=== PATIENT | female | born 1965 | race Caucasian/White ===

== ENCOUNTER 2024-09-22 14:17 | Outpatient (AMB) | payer MEDICARE, MEDICAID, SELFPAY ==
--- NOTE | 2024-09-22 14:19 | A.OFFVIS_ITS ---
Vital Signs 3 09/22/24 14:20 Height 5 ft 3 in Weight 226 lb 6.636 oz BMI 40.1 BP 140/76 H Blood Pressure Location Lt brachial Position Sitting Pulse 88 Pulse Source Pulse Oximeter Pulse Oximetry (%) 97 Oxygen Delivery Method Room Air Intake Visit Reasons: Hypothyroidism and weight management Intake Note: New patient present today for Hypothyroidism and weight management. 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 Accompanied by: Self / Same As Patient Allergies No Known Allergies Allergy (Verified 09/22/24 14:23) Medication List - Last Reconciled 09/22/24 by Asha Tavera MD amlodipine 2.5 mg PO DAILY atorvastatin 40 mg PO DAILY docusate sodium 100 mg PO BID fluticasone propionate 50 mcg/actuation 1 spray intranasal DAILY lamotrigine 150 mg PO DAILY levocetirizine 5 mg PO DAILY levothyroxine 50 mcg PO DAILY lorazepam 1 mg PO TID methylphenidate HCl 10 mg PO BID nortriptyline 25 mg PO BEDTIME omeprazole 40 mg PO BID ondansetron HCl 4 mg PO TID PRN polyethylene glycol 3350 5 grams PO BID quetiapine 400 mg PO BID valacyclovir 4,000 mg PO ONCE HPI Comments Details: 59-year-old female coming in today for initial evaluation of hypothyroidism and weight management. Past medical history significant for hypothyroidism, prediabetes, hypertension, metabolic dysfunction associated liver disease, hyperlipidemia, bipolar disorder, class 3 obesity. Hypothyroidism Hypothyroidism diagnosed sometime roughly in 1999. On levothyroxine 50 mcg daily , good administration and adherence. Was seeing PCP before this. Patient currently denies heat or cold intolerance, costipation resolved with meds , hair loss, palpitation, anxiety, mood changes, low energy, changes in appearance of eyes or vision changes, tremors, increased diaphoresis or dry skin. ? Patient denies any difficulty swallowing, pain on swallowing or voice changes or difficulty breathing. Patient denies any history of childhood neck radiation. Denies having ever amiodarone. [place] : in the , doesnt remember how long she was on it Biotin supplements : yes Patient denies any family history of thyroid cancer. Mother , Father and sister had thyroid disease. Obesity BMI 40.1 kg per m2 Current weight 226 lb On Wegovy 0.5 mg weekly from October to March 2024, lost 30 lbs , gained back 10 lbs since Apr 2024 Used to be overweight at a kid, then normal weight in high school , and then up until 10 years ago was normal, then started gaining weight , went from 130 lbs to 240 lbs. Also has been on anti depressive meds during this time. Prior to [place] was at the highest weight of 250 lbs. No history of ME or stroke. 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 Diet: Tries to avoid junk food Reports easy bruising , no proximal muscle weakness, no skin thinning, no facial plethora, no abdominal stria Feels rings are tighter , no change in shoe size Quit smoking 2016, smoked for 30 years, 2 packs a day Alcohol use: none Drug use : none On social security, disability Is not interested in weight loss surgery, apprehensive of it Physical exam General: sitting comfortably in no acute distress, no acromegalic or cushingoid features HEENT: normocephalic/atraumatic, Neck: supple, symmetrical, does have dorsocervical and supraclavicular fat pads Cardiac: normal heart sounds Pulm: normal breath sounds B/L, no added breath sounds Abd: not distended, no tenderness, no purple striae Extremities: no edema, no signs of myxedema Neuro: AAO x3, Speech: normal, no facial droop, moving all 4 extremities Skin: no rash, no bruises, no skin thinning PFSH Medical History (Updated 09/22/24 @ 15:22 by Asha Tavera MD) Obesity Bipolar disorder Metabolic dysfunction-associated steatotic liver disease (MASLD) Prediabetes HLD (hyperlipidemia) HTN (hypertension) Hypothyroidism Surgical History (Updated 09/22/24 @ 14:32 by IZZY Perez) No pertinent past surgical history Family History (Updated 09/22/24 @ 14:28 by IZZY Perez) Mother Breast cancer Thyroid disease Father Thyroid disease Heart disease Social History Alcohol intake: current Alcohol intake frequency: does not drink Patient Tobacco Use Status: Former Tobacco user Physical Exam Vital Signs: Last Vital Signs Pulse 88 09/22/24 14:20 BP 140/76 H 09/22/24 14:20 Pulse Ox 97 09/22/24 14:20 Oxygen Delivery Method Room Air 09/22/24 14:20 BMI result Body Mass Index 40.1 Assessment & Plan Assessment & Plan (1) Hypothyroidism: Code(s): E03.9 - Hypothyroidism, unspecified Category: Medical Qualifiers: 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 Most recent blood work done in July 2024 shows TSH was slightly elevated at 4.3. At this time I will repeat labs. Plan: -ordered TSH and free T4 to be done now -continue levothyroxine 50 mcg daily -follow up in 6 weeks (2) Obesity: Code(s): E66.9 - Obesity, unspecified Category: Medical Qualifiers: Obesity type: due to excess calories Obesity classification: adult class 3 (BMI >= 40) Serious obesity comorbidity presence: with serious comorbidity Body mass index: BMI 40.0-44.9 Qualified Code(s): E66.813 - Obesity, class 3; Z68.41 - Body mass index [BMI] 40.0-44.9, adult Plan: 59-year-old female with class 3 severe obesity with BMI of 40.1 kg per m2 with current weight 226 lb, with serious comorbidity of hypertension, hyperlipidemia, prediabetes, metabolic dysfunction associated liver disease, who is on Wegovy 0.5 mg weekly injection from October to March 2024 and lost 30 lb, now gained 10 lb in the past 6 months since she has been off the GLP 1 agonist. She does not have any acromegalic or obvious cushingoid features. I reviewed with patient the importance of weight loss as it relates to decreasing the risk of diabetes, cardiovascular disease, obstructive sleep apnea,PCOS, arthritis. We reviewed the importance of decreasing total calorie consumption, minimizing fats and carbohydrates. We discussed the method of 500 calorie deficit per day using phone calorie apps such as Antuit or my fitness pal. Also placed referral to support staff, though this was not covered by her insurance previously apparently, we will check again. She is already exercising with 30 minutes walk daily, walks about 4-5 miles. I have asked her to add resistance training to her exercise regimen about 2-3 days a week with weight lifting and resistance bands. Continue current aerobic activity. She is a candidate for weight loss surgery, however she is not interested in surgery at this time. She is very motivated to lose weight and is maintaining a good exercise regimen, plus some additional information giving regarding dietary education. In addition to lifestyle modification I would strongly believe that she is a good candidate for weight loss medications. I I would like to start her on Zepbound which is a GLP 1/GI P agonist, patient would be an excellent candidate for this medication. No family history of thyroid cancer, no personal history of pancreatitis, no history of gallstones. No current alcohol use. I discussed the adverse effects of GI intolerance, risk of pancreatitis and risk of medullary thyroid cancer seen in rodents but not human being. She has hypertension, hyperlipidemia, prediabetes and is at very high-risk of developing cardiovascular disease and diabetes and this medication we will result in about 15-20% weight loss which would be her target. She is not a good candidate for other weight loss medications which are less potent such as phentermine, as those only result in about 5% weight loss which is a short-term solution, 5% weight loss would not be getting her to her goal target. Plus she has hypertension with currently uncontrolled blood pressure, and she also has a strong psychiatric history with bipolar disorder and is on antipsychotic medications. These could interfere with phentermine. Plus weight management is a long-term chronic treatment which requires medications that patients can be on safely for long periods of time. Plan: -start Zepbound 2.5 mg weekly injection -lifestyle modification as advised above -support staff referral placed -follow up in 6 weeks (3) Prediabetes: Code(s): R73.03 - Prediabetes Category: Medical Plan: See above Plan I spent 60 minutes in reviewing the record, seeing the patient and documenting in the medical record. Orders: Orders 2 Thyroid Stimulating Hormone Today E03.9 - Hypothyroidism, unspecified Hemoglobin A1c Today E66.9 - Obesity, unspecified, R73.03 - Prediabetes Free T4 (Free Thyroxine) Today E03.9 - Hypothyroidism, unspecified Referrals 2 Nutrition/Dietitian Referral E66.9 - Obesity, unspecified Medications: New 2 tirzepatide (weight loss) (Zepbound) for 4 weeks 2.5 mg (0.5 mL) subcut QWEEK 2 mL 3RF E66.813 - Obesity, class 3, E78.5 - Hyperlipidemia, unspecified, I10 - Essential (primary) hypertension, K76.0 - Fatty (change of) liver, not elsewhere classified, R73.03 - Prediabetes, Z68.41 - Body mass index [BMI] 40.0-44.9, adult Patient Instructions: Weight loss counselling ? Limit added sugars to less than 25 grams daily. There are 4.2 grams of sugar per teaspoon of sugar. A teaspoon of honey has 6 grams of sugar! Bread also can have more sugar than you think-check labels ? No soda or juices. Drink water, unsweetened iced tea or seltzer ? Limit eating out/take out or prepared meals to twice weekly at most ? Avoid red meat, hot dogs, hdaley and deli meat. Substitute plant protein for animal protein as much as you can. Beans, nuts, tofu, soy milk ? Limit cheese to 1 ounce a few times weekly ? Eat high fiber foods like beans, apples and green veggies, salsa is a great snack with whole grain cracker like Wasa ? Look for the whole grain stamp when choosing bread etc. Aim for 48 grams of whole grains daily. Whole wheat does not equal whole grains! ? Don't keep tempting treats in the house. Go out once in a while for a treat. ? Don't eat anything deep fried or cream based-no sour cream Download the amandeep lose it and aim for 500 calories deficit per day to plan to lose 1 lb per week Start adding some weights to your exercise regimen 2-3 days a week Continue aerobic exercise with walking/jogging Referral to support staff placed Start Zepbound 2.5 mg weekly injection , please let me know when you do start it as I keep track of dates to uptitrate. 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
[2024-09-22 14:20] VITALS: BP 140/76; PULSE 88; O2SAT 97; BMI 40.1
--- OUTSIDE RECORDS SUMMARY | 2024-09-22 15:33 | XMS_ITS | Clinical Summary ---
Author Organization [facility] [address] [facility] Address [address] [place] [address] Phone Care Team Providers Care Family Day Carer Name Role Phone Efraín Rodríguez MD Primary Care Provider [phone] Allergies No known active allergies Medications valACYclovir (VALTREX) 1 gram tablet TAKE 2 TABLETS BY MOUTH TWICE DAILY FOR 1 DAY NEEDED FOR COLD SORE 4 Active Wegovy 0.5 mg/0.5 mL injection pen 4 Active risperiDONE (RisperDAL) 2 mg tablet Take 1 tablet (2 mg total) by mouth. at bedtime. Active QUEtiapine (SEROquel) 400 mg tablet Take 2 tablets (800 mg total) by mouth. at bedtime Active polyethylene glycol 3350 (MIRALAX ORAL) Take by mouth. 6 Active ondansetron (ZOFRAN) 4 mg tablet Take 1 tablet (4 mg total) by mouth 3 (three) times a day if needed. 4 Active omeprazole (PriLOSEC) [address] capsule TAKE 1 CAPSULE BY MOUTH TWICE DAILY ON AN EMPTY STOMACH Active metoclopramide (REGLAN) 5 mg tablet TAKE 1 TABLET BY MOUTH THREE TIMES DAILY 1 HOUR BEFORE MEALS 4 Active methylphenidate (RITALIN) 10 mg tablet TAKE 1 TABLET BY MOUTH TWICE DAILY FOR ADHD Active LORazepam (ATIVAN) 1 mg tablet Take 1 tablet (1 mg total) by mouth. 4 Active levothyroxine (SYNTHROID, LEVOTHROID) 50 mcg tablet Take 1 tablet (50 mcg total) by mouth. at bedtime Active levocetirizine (XYZAL) 5 mg tablet Take 1 tablet (5 mg total) by mouth. Active lamoTRIgine (LaMICtal) 150 mg tablet Take 1 tablet (150 mg total) by mouth. at bedtime. 4 Active fluticasone propionate (FLONASE) 50 mcg/actuation nasal spray Administer 1 spray into each nostril 1 (one) time each day. Active docusate sodium (COLACE) 100 mg capsule Take 1 capsule (100 mg total) by mouth 2 (two) times a day. 4 Active atorvastatin (LIPITOR) 20 mg tablet Take 1 tablet (20 mg total) by mouth 1 (one) time each day. Active amLODIPine (NORVASC) 2.5 mg tablet Take 1 tablet (2.5 mg total) by mouth 1 (one) time each day. Active albuterol HFA (PROAIR HFA ; PROVENTIL HFA ; VENTOLIN HFA) 90 mcg/actuation inhaler 2 puffs every 4 (four) hours if needed for wheezing. 4 Active aspirin 81 mg EC tablet Take 1 tablet (81 mg total) by mouth. 4 Active nortriptyline (PAMELOR) 25 mg capsuleIndication s:Nausea and vomiting, unspecified vomiting type Take 1 capsule (25 mg total) by mouth at bedtime. 90 each 3 4 04/11/20 25 Active polyethylene glycol (MIRALAX) 17 gram packetIndications :Chronic constipation Take 51 g by mouth 2 (two) times a day. 9180 g 3 5 07/11/19 26 Active Active Problems Problem Noted Date Diagnosed Date Adenomatous polyp of colon 04/11/2024 Gastroesophageal reflux disease without esophagi tis 04/11/2024 Depression 04/11/2024 Hypothyroid 04/11/2024 Bipolar affective (CMS/HCC V24, CMS/HCC V28) Chronic constipation 04/11/2024 Assessment & Plan (07/10/2024 9:06 AM EDT): Stable with MiraLAX 6 capfuls daily Orders: polyethylene glycol (MIRALAX) 17 gram packet; Take 51 g by mouth 2 (two) times a day. Nausea and vomiting 04/11/2024 Assessment & Plan (07/10/2024 9:06 AM EDT): Only one mild episode 2 weeks ago. Unclear if this was a lesser version of her typical episodes due to nortriptyline or if it was unrelated and possibly viral or due to stopping Wegovy Continue nortriptyline 25 mg Encounters Date Type Department Care Team Description 07/10/2024 8:40 AM EDT Office Visit Gastroenterology - [address] [facility] [address] [facility] [address] [place] [address] Adolfo Hernández PA Nausea and vomiting, unspecified vomiting type (Primary Dx); Chronic constipation from Last 3 Months Surgical History Surgery Date Site/Laterality Comments COLONOSCOPY 11/21/2021 - 12/21/2021 TA - 3 yr COLONOSCOPY 08/21/2018 - 09/20/2018 TAx1,HPx1, left sided tic, rhoids ( 3 yr) COLONOSCOPY 08/21/2017 - 09/20/2017 TA x 9, sigmoid tics, rhoids (1yr) ESOPHAGOGASTRODUODENOSCOPY 08/21/2018 - 09/20/2018 nl Social History Tobacco Use Types Packs/Day Years Used Date Smoking Tobacco: Former Cigarettes Tobacco Cessation:Counseling Given: Not Answered Alcohol Use Standard Drinks/Week Comments Never 0 (1 standard drink = 0.6 oz pur e alcohol) Comments Unknown Sex and Gender Information Value Date Recorded Sex Assigned at Not on file Legal Sex Female 6:01 AM EST Gender Identity Not on file Sexual Orientation Not on file Obstetrics History Last Filed Vital Signs Vital Sign Reading Time Taken Comments Blood Pressure - - Pulse - - Temperature - - Respiratory Rate - - Oxygen Saturation - - Inhaled Oxygen Concentration - - Weight 101 kg (222 lb) 07/10/2024 8:36 AM EDT Height 160 cm (5' 3 ) 07/10/2024 8:36 AM EDT Body Mass Index 39.33 07/10/2024 8:36 AM EDT Plan of Treatment Upcoming Encounters Date Type Department Care Team (Late st Contact Info) Description 05/05/2025 1:30 PM EST Consult Bariatric Surgery - [place] [address] [facility] [address] [place] [address] Justyn Rincon MD [address] [facility] [address] [place] [address] Health Maintenance Due Date Last Done Comments Breast Cancer Screening 1967 Hepatitis A Vaccines (1 of 2 - Risk 2-dose series) 1986 Hepatitis B Vaccines (1 of 3 - 19+ 3-dose series) 1986 Cervical Cancer Screening: Pap Smear 1988 Pneumococcal Vaccine: 50+ Years (2 of 2 - PCV) 2017 12/14/2015 Zoster Vaccines (2 of 2) 05/22/2018 03/27/2018, 02/21 Cholesterol Screening (Lipid Panel) 03/26/2022 Depression Screening 03/26/2022 HIV Screening 03/26/2022 Hepatitis C Screening 03/26/2022 Medicare Annual Wellness Visit 03/26/2022 Social Influencers of Health Screening 03/26/2022 Hypertension/CHF/CAD Annual BMP Blood Test 04/11/2024 DTaP,Tdap,and Td Vaccines (3 - Td or Tdap) 07/17/2028 07/17/2018, 06/25/2006 Colorectal Cancer Screening: Colonoscopy 04/15/2034 04/15/2024 Pneumococcal Vaccine: Pediatrics (0 to 5 Years) and At-Risk Patients (6 to 64 Years) Aged Out 12/14/2015 No longer eligible based on patient's age to complete this topic COVID-19 Vaccine Completed 01/19/2024, , 12/29/2021, Additional history exists Influenza Vaccine Completed 01/19/2024, , 12/29/2021, Additional history exists HIB Vaccines Aged Out No longer eligi ble based on patient's age to complete this topic HPV Vaccines Aged Out No longer eligi ble based on patient's age to complete this topic IPV Vaccines Aged Out No longer eligi ble based on patient's age to complete this topic MMR Vaccines Aged Out No longer eligi ble based on patient's age to complete this topic Meningococcal ACWY Vaccine Aged Out N o longer eligible based on patient's age to complete this topic Meningococcal B Vaccine Aged Out No l onger eligible based on patient's age to complete this topic RSV Immunization Patients Under 20 months Aged Out No longer eligible based on patient's age to complete this topic Varicella Vaccines Aged Out No longer eligible based on patient's age to complete this topic Procedures Procedure Name Priority Date/Time Associated Diagnosis Comments COLONOSCOPY Routine 04/15/2024 11:12 AM EST from Last 3 Months or Most Recently Relevant to Health Maintenance Results * COLONOSCOPY (04/15/2024 11:12 AM EST) Anatomical Region Laterality Modality Endoscopy us Historical Provider GI~PROCEDURE ORDERABLES F inal Result from Last 3 Months or Most Recently Relevant to Health Maintenance Insurance MEDICARE MEDICAID - [place] Care Teams Family Day Carer Relationship Specialty Start Date End Date Efraín Rodríguez MD [address] [place], [place] PCP - General Internal Medicine 02/18/24
== END 2024-09-22 15:15 | disposition home or self-care (01) ==
LOC: HO.ENCR 14:18
PROVIDERS: PCP Internal Medicine; Visit Provider Student in an Organized Health Care Education/Training Program
DX: E06.3 Autoimmune thyroiditis (principal); E66.813 Obesity, class 3; Z68.41 Body mass index [BMI] 40.0-44.9, adult; R73.03 Prediabetes
CPT/HCPCS: 99205

== ENCOUNTER → 2024-09-22 14:17 | Outpatient (BNVA) | payer MEDICARE, SELFPAY | PROVIDERS: PCP Internal Medicine; Visit Provider Student in an Organized Health Care Education/Training Program | DX: E06.3 Autoimmune thyroiditis (principal); R73.03 Prediabetes; E78.5 Hyperlipidemia, unspecified; E66.813 Obesity, class 3; K76.0 Fatty (change of) liver, not elsewhere classified; Z68.41 Body mass index [BMI] 40.0-44.9, adult | CPT/HCPCS: 99202 ==

== ENCOUNTER 2024-11-04 09:48 | Outpatient (AMB) | payer MEDICARE, MEDICAID, SELFPAY ==
--- NOTE | 2024-11-04 10:27 | A.OFFVIS_ITS ---
VS Expanded 11/04/24 10:32 11/04/24 10:36 Height 5 ft 3 in 5 ft 3 in Weight 233 lb 233 lb BMI 41.3 41.3 Intake Visit Reasons: Obesity Allergies No Known Allergies Allergy (Verified 11/04/24 09:53) Nutrition Presentation Details: Pt presents for MNT for obesity. Pt was referred by fuse maker Pt also has pre DM , A1c 5.7% labs from 07/2024 Pt reports long hx of weight loss methods since childhood, including liquid diets, atkins. reports lacking knowledge regarding balancing meals Typically coffee in AM ice coffee ,black no sugar added 12-1 pm : tall glass of milk 1% and lean cuisine 3pm: coffee crackers and cheese 7-8 pm stuffed zucchini boats/milk and brownies , water food frequency fruit 1wk fish: 1wk dairy:daily 3/wk eating out : 1-2 /d water : 32 oz /day coffee 2 coffee /day physical activity: walks 45 min 3-4 x/wk (no walking in the last week d/t hot weather) eoth/smoking- denies LLH-Vidkvfu-Sg.Jeor Equation Height: 5 ft 3 in Weight: 233 lb Resting Metabolic Rate: 1614.50 Calculated Activity Level: Sedentary Calories Needed to Maintain Weight: 1937.40 Diagnosis Nutrition problem #1: food nutri know defi PFSH Medical History (Updated 11/04/24 @ 11:06 by Nikki Negro, RD, LDN) Obesity Bipolar disorder Metabolic dysfunction-associated steatotic liver disease (MASLD) Prediabetes HLD (hyperlipidemia) HTN (hypertension) Hypothyroidism Surgical History No pertinent past surgical history Family History Mother Breast cancer Thyroid disease Father Thyroid disease Heart disease Social History Alcohol intake: current Alcohol intake frequency: does not drink Patient Tobacco Use Status: Former Tobacco user Assessment & Plan Assessment & Plan (1) Obesity: Comment: w pre DM A1c 5.7% (08/15) Code(s): E66.9 - Obesity, unspecified Category: Medical Qualifiers: Obesity type: due to excess calories Obesity classification: adult class 3 (BMI >= 40) Serious obesity comorbidity presence: with serious comorbidity Body mass index: BMI 40.0-44.9 Qualified Code(s): E66.813 - Obesit y, class 3; Z68.41 - Body mass index [BMI] 40.0-44.9, adult Plan: Wt:106 Kg ( 08/15 ) Est kcal needs as per MSJ: 1900 (40% carb, 30% protein/fat) Est fluid needs as per 25-30 ml/d: 3200 Est prot per day as per 1 g/kg bw: 100 Recommend fiber intake : 8-10 g per day and gradually increase to 25-28 g per day for women and 35-38 g for men or as tolerated Recommend sodium intake per day : less than 2300 mg Educated patient on: ( R = reviewed V = verbalizes understanding N/R = needs review N/A = not applicable * Food sources of carbohydrate, adequate serving sizes and its role in various health conditions: R * Differences between complex carbohydrates a simple carbohydrates, role of fiber in diet: R * Lean protein sources of foods: R * Differences between types of fats and role in diet (mono on saturated fat fatty acids, saturated fatty acids, trans fats): R V N/R * Food sources of sodium in salt and healthy modifications for heart health in kidney health: R V R/V * Vitamins and minerals: R V N/R * Healthy plate method concept: R * Physical activity: Benefits a precaution: R V N/R Patient Instructions: Work on balancing meals following healthy plate method choose firber rich foods (non starchy vegetables, fruits, whole grains - reducing total carb to 45 g at meal or less at dinner time - see meal ideas Coding Level of Care Code Nutr Indiv Intake (72711) Diagnoses Class 3 severe obesity due to excess calories with serious comorbidity and body mass index (BMI) of 40.0 to 44.9 in adult E66.813; Z68.41 Obesity type: due to excess calories Obesity classification: adult class 3 (BMI >= 40) Serious obesity comorbidity presence: with serious comorbidity Body mass index: BMI 40.0-44.9 Time Spent (min) 30
[2024-11-04 10:32] VITALS: BMI 41.3
--- OUTSIDE RECORDS SUMMARY | 2024-11-04 10:32 | XMS_ITS | Data Portability ---
Author Organization [place] [facility] Address [address] [place] [id number] Care Team Providers Care Elevator Operator Service Name Role Phone MELISSA VELASQUEZ Primary Care Provider [phone] [facility] OTHER Assessment Encounter Date Assessment Date Assessment LastModified by Organization Details LastModified Time 07/09/2020 07/09/2020 Overview/History : 55 y/o F with PMHx sig for depression, anxiety, bipolar disorder, HSV1, hypothyroidism, and 17+ pack years, new to , who presents with c/o sob x 1 month. Patient reports dyspnea and wheezing with exertion, improved with rest and albuterol inhaler as well as dry cough at night. Recently finished course of antibiotics after telehealth visit for possible sinus infection. Denies significant improvement with flonase. Reports tight feeling in throat with swallowing and ball of mucus in back of throat that has improved but not resolved after starting Zyrtec. Denies fever, chills, chest pain, lightheadedness, syncope, nausea, diaphoresis, hemoptysis, sore throat, ear pain, or difficulty swallowing liquids or solids. Thyroid tested a few months ago. She has been using a humidifier and reports dry nose in PM and runny nose in AM. Exam: afebrile, mildly tachycardic (likely due to deconditioning and obesity), mildly hypertensive, normal resps, O2 sat 93-95% on RA, non-toxic, well appearing. GENERAL: well developed, well nourished, obese, appears stated age, sitting comfortably in no acute distress. HEENT: normocephalic, atraumatic, sinuses nontender, PERRL, EOMI, sclera anicteric, no conjunctival injection, external auditory canal clear, TMs pearly white with cone of light, nares patent, septum midline, turbinates non-edematous, posterior pharynx without lesions, or erythema, mmm. NECK: trachea midline, no masses, cervical lymphadenopathy, or thyromegaly. RESP: barrel chested, prolonged I:E, breathing non-labored, no accessory muscle use, diffuse expiratory wheeze throughout, no rhonchi, or rales. CARDIO: RRR, normal S1, S2, no murmurs, rubs, or gallops, radial pulses 2+ bilaterally. EXTREMITIES: warm, well perfused, no cyanosis, swelling or rashes. NEURO: awake, alert, oriented x3, no focal neuro deficits, moving all extremities spontaneously, normal gait. DDx considered, but not limited to: ACS - unlikely given chronicity, no chest pain, nausea, or diaphoresis, pt in no acute distress PNA - unlikely, just finished course of ABX and CXR normal, afebrile COVID - unlikely, afebrile, denies URI sxs, COVID test neg, no known exposure, adherent to mask policy acute COPD exac - likely given smoking hx and chronicity of sxs acute viral bronchitis - possible CHF exac - unlikely, no PND, orthopnea, LIZET PE - unlikely, no chest pain, hypotension, hemoptysis, leg pain or swelling pleural effusion - unlikely, no decreased BS, recent CXR normal pericardial effusion - unlikely, no muffled heart sounds, hypotension, PND, or orthopnea pneumothorax - unlikely, no absent BS or CP malignancy - less likely with recent normal CXR Work up/Results: PVIX reviewed 07/06/20 CXR normal, COVID PCR neg. Plan/Discussion: -acute COPD exacerbation w/o previous diagnosis vs acute viral bronchitis -given LUTHER, diffuse wheezing, and mildly decreased O2 sat 93-95% on RA, will start Prednisone burst 40 mg daily x5 days, first dose given on scene -no smoking or vaping -recommend pulmonology referral for PFTs and further eval -f/u with PCP regarding maintenance inhalers -continue with rescue inhaler as prescribed [facility]. We cannot always find the exact cause of your symptoms during your initial visit. Please follow up with your primary care provider or specialist to be rechecked or seek medical attention if your symptoms do not go away or get worse. If you develop any new or worsening symptoms and need after hours care, please go to nearest ER and/or call 911. If you have additional concerns or develop a change in your condition between 8am-10pm, please call [facility] at [phone] to help navigate your care. In order to obtain further information and compare any laboratory results/values, I have accessed patient records on the [employer]. This information was pertinent in my medical decision making today. Time On Scene with Patient: 00:47:42 juan Not available 07/09/2020 14:30:09 Plan of Treatment Reminders Order Date Submit Date Provider Last Modified By Organization Details Last Modified Time Details Appointments None recorded. Lab None recorded. Referral None recorded. Procedures None recorded. Surgeries None recorded. Imaging None recorded. Medication Orders prednisone 10 mg tablet 2020 021 juan Not available 13:55:41 prednisone 20 mg tablet 2020 021 BARBARA Not available 13:55:48 Patient TargetsNo targets recorded. Patient InstructionsNo instructions recorded. Reason for Referral None Reported. Medical Equipment None Reported. Allergies No known drug allergies Medications Name Sig Start Date Stop Date Status Note LastModified by Organization Details LastModified Time lamotrigine 150 mg tablet TAKE 1 TABLET BY MOUTH EVERY DAY AT BEDTIME active Not Available Not Available No t Available prednisone 10 mg tablet 40 mg PO given on scene once 2020 active Not Available Not Available Not Avai lable ketoconazol e 2 % shampoo DANNA TOPICALLY 1 TIME PRN UTD PER PACKAGE DIRECTION S 07/09 completed Not Available Not Available Not Available cetirizine 10 mg tablet TAKE 1 TABLET BY MOUTH EVERY DAY active Not Available Not Available No t Available fluconazole 150 mg tablet TAKE 1 TABLET BY MOUTH 1 TIME active Not Available Not Available No t Available methylpheni date 10 mg tablet TAKE 1 TABLET BY MOUTH TWICE DAILY active Not Available Not Available No t Available valacyclovi r 1 gram tablet TAKE 2 TABLETS BY MOUTH TWICE DAILY NEEDED FOR COLD SORE active Not Available Not Available No t Available Nystop 100,000 unit/gram topical powder APPLY TO AFFECTED AREA TOPICALLY 2 TIMES PER DAY FOR 14 DAYS active Not Available Not Available No t Available prednisone 20 mg tablet TAKE 2 TABLETS BY MOUTH EVERY DAY IN THE MORNING FOR 4 DAYS active Not Available Not Available No t Available omeprazole 40 mg capsule,del ayed release TAKE ONE CAPSULE BY MOUTH EVERY DAY active Not Available Not Available No t Available risperidone 2 mg tablet TAKE 1 TABLET BY MOUTH AT BEDTIME active Not Available Not Available No t Available prednisolon e acetate 1 % eye drops,suspe nsion SHAKE LIQUID AND INSTILL 1 DROP IN BOTH EYES TWICE DAILY DIRECTED 07/09 completed Not Available Not Available Not Available levothyroxi ne 50 mcg tablet TAKE 1 TABLET BY MOUTH EVERY DAY active Not Available Not Available No t Available docusate sodium 100 mg capsule TAKE 1 CAPSULE BY MOUTH TWICE A DAY active Not Available Not Available No t Available lorazepam 1 mg tablet TAKE 1 TABLET BY MOUTH THREE TIMES DAILY active Not Available Not Available No t Available polyethylen e glycol 3350 17 gram/dose oral powder TAKE 3 SCOOPS DISSOLVED IN WATER TWICE DAILY active Not Available Not Available No t Available albuterol sulfate HFA 90 mcg/actuati on aerosol inhaler INHALE 2 PUFFS BY MOUTH EVERY 4 HOURS NEEDED FOR WHEEZING OR SHORTNESS OF BREATH active Not Available Not Available No t Available fluticasone propionate 50 mcg/actuati on nasal spray,suspe nsion SHAKE LIQUID AND USE 2 SPRAYS IN EACH NOSTRIL DAILY IN THE MORNING active Not Available Not Available No t Available amoxicillin 875 mg-potassiu m clavulanate 125 mg tablet TAKE 1 TABLET BY MOUTH EVERY 12 HOURS FOR 7 DAYS active Not Available Not Available No t Available Restasis 0.05 % eye drops in a dropperette INSTILL 1 DROP IN BOTH EYES TWICE DAILY DIRECTED active Not Available Not Available No t Available chlorhexidi ne gluconate 0.12 % mouthwash FILL TO FILL LINE SWISH UNDILUTED FOR 30 SEC AND SPIT OUT AFTER BREAKFAST AND BEFORE BEDTIME 07/09 completed Not Available Not Available Not Available sodium fluoride 1.1 %-potassium nitrate 5 % dental paste USE TWO TO THREE TIMES A DAY SPIT OUT EXCESS. DO NOT RINSE WITH WATER. NO EATING OR DRINKING FOR 45 MIN AFTER. active Not Available Not Available No t Available quetiapine 400 mg tablet TAKE 2 TABLETS BY MOUTH EVERY DAY AT BEDTIME active Not Available Not Available No t Available Vitals Date Recorded Heart rate Respiratory rate Oxygen saturation Oxygen saturation in Arterial blood by Pulse oximetry Body temperature Oxygen saturation Oxygen saturation in Arterial blood by Pulse oximetry Systolic And Diastolic Provider Name and Address Organization Details Last Updated DateTime 102 /min 20 /min 93 % 93 % 98 [degF] 95 % 95 % 132/76 mm[Hg] Not Available [facility] 13:37:24 Social History Question Answer Notes LastModified by [employer] Details LastModified Time Tobacco Smoking Status Former Smoker [facility] [address] [place], [address], [place] [facility] 07/09/2020 13:39:43 Do You Have An Advance Directive? No [employer] Information not available 07/09/2020 What Is Your Code Status? Full Code [employer] Information not available 07/09/2020 Excessive Alcohol Or Drug Use No [employer] Information not available 07/09/2020 How Much Tobacco Do You Smoke? 0.5 PPD [employer] Information not available 07/09/2020 How Many Years Have You Smoked Tobacco? 35 [employer] Information not available 07/09/2020 Sex: Unknown Functional Status Question Answer Note LastModified by [employer] Details LastModified Time Do you or have you ever used e-cigarettes or vape? Current user of electronic cigarettes cannabis [employer] Information not available 07/09/2020 Mental Status None recorded. Family History Relationship Description Onset Age of this Age Resolved Age Notes LastModified by Organization Details LastModified Time Father Coronary arterioscler osis juan Not available 2020 13:40:36 Mother Coronary arterioscler osis juan Not available 2020 13:40:42 Medical History Condition Response Coronary Artery Disease N COPD N Depression Y Diabetes N Cancer N Stroke N Asthma N High Cholesterol N Pulmonary Embolism N Hypertension N Kidney Disease N Gynecological HistoryNo gynecological history recorded. Obstetrics History GPAL:G 0 P 0 0 0 0 Past Encounters Encounter ID Performer Location Encounter Start Date Encounter Closed Date Diagnosis/Indication Diagnosis SNOMED-CT Code Diagnosis ICD10 Code Diagnosis Note [id number] [facility] [address] [place] [address] 07/09/2020 13:33:00 07/12/2020 19:08:46 Acute exacerbation of chronic obstructive pulmonary disease 570975803 J44.1 Health Concerns Section Related Observation LastModified by Organization Detai ls LastModified Time None Recorded Concern Status LastModified by Organization Details LastModified Time None Recorded Advance Directives Directive N: Payers Insurance Date Sequence Insurance Name Policy Number Policy Olson Covered Member ID Olson Member ID Guarantor Name 09/24/2020 2 [place] [facility] Sun Jacobo [id number] Sun Jacobo 07/09/2020 1 *SELF PAY* Sun Jacobo [id number] Sun Jacobo 09/24/2020 1 [place] [employer] Sun Jacobo [id number] Sun Jacobo 09/24/2020 1 [place] [employer] [facility] Sun Jacobo [id number] Sun Jacobo 09/24/2020 2 [place] [facility] Sun Jacobo [id number] Sun Jacobo Notes Date Note Type Note Provider Name and Address Organization Details Recorded Time 07/09/2020 text/html 55 y/o F with PMHx sig for depression, anxiety, bipolar disorder, HSV1, hypothyroidism, and 17+ pack years, new to , who presents with c/o sob x 1 month. Patient reports dyspnea and wheezing with exertion, improved with rest and albuterol inhaler as well as dry cough at night. Recently finished course of antibiotics after telehealth visit for possible sinus infection. Denies significant improvement with flonase. Reports tight feeling in throat with swallowing and ball of mucus in back of throat that has improved but not resolved after starting Zyrtec. Denies fever, chills, chest pain, lightheadedness, syncope, nausea, diaphoresis, hemoptysis, sore throat, ear pain, or difficulty swallowing liquids or solids. Thyroid tested a few months ago. She has been using a humidifier and reports dry nose in PM and runny nose in AM. [facility] [address] [place], [address], [place] [facility] 07/09/2020 14:30:36 OBGyn Episode No OBEpisode recorded.
[2024-11-04 10:36] VITALS: BMI 41.3
== END 2024-11-04 10:58 | disposition home or self-care (01) ==
LOC: HO.ENCR 09:49
PROVIDERS: PCP Internal Medicine; Visit Provider Dietitian, Registered
DX: E66.813 Obesity, class 3 (principal); Z68.41 Body mass index [BMI] 40.0-44.9, adult

== ENCOUNTER 2024-11-04 09:48 | Outpatient (AMB) | payer MEDICARE, MEDICAID, SELFPAY ==
[2024-11-04 09:50] VITALS: BP 140/72; PULSE 90; O2SAT 96; BMI 41.2
--- NOTE | 2024-11-04 09:50 | A.OFFVIS_ITS ---
Vital Signs 3 11/04/24 09:50 Height 5 ft 3 in Weight 232 lb 12.93 oz BMI 41.2 BP 140/72 H Blood Pressure Location Lt brachial Position Sitting Pulse 90 Pulse Source Pulse Oximeter Pulse Oximetry (%) 96 Oxygen Delivery Method Room Air Intake Visit Reasons: Hypothyroidism and weight management Intake Note: Patient present today for hypothyroidism and weight management office visit. Bookstore Clerk Required: No Accompanied by: Self / Same As Patient Allergies No Known Allergies Allergy (Verified 11/04/24 09:53) Medication List - Last Reconciled 11/04/24 by Asha Tavera MD amlodipine 2.5 mg PO DAILY atorvastatin 40 mg PO DAILY docusate sodium 100 mg PO BID fluticasone propionate 50 mcg/actuation 1 spray intranasal DAILY lamotrigine 150 mg PO DAILY levocetirizine 5 mg PO DAILY levothyroxine 50 mcg PO DAILY lorazepam 1 mg PO TID methylphenidate HCl 10 mg PO BID nortriptyline 25 mg PO BEDTIME omeprazole 40 mg PO BID ondansetron HCl 4 mg PO TID PRN polyethylene glycol 3350 5 grams PO BID quetiapine 400 mg PO BID tirzepatide (weight loss) (Zepbound) 2.5 mg (0.5 mL) subcut QWEEK valacyclovir 4,000 mg PO ONCE HPI Comments Details: 59-year-old female coming in today for follow up of hypothyroidism and weight management. Past medical history significant for hypothyroidism, prediabetes, hypertension, metabolic dysfunction associated liver disease, hyperlipidemia, bipolar disorder, class 3 obesity. Hypothyroidism Hypothyroidism diagnosed sometime roughly in 1999. On levothyroxine 50 mcg daily , good administration and adherence. Was seeing PCP before this. Patient currently denies heat or cold intolerance, costipation resolved with meds , hair loss, palpitation, anxiety, mood changes, low energy, changes in appearance of eyes or vision changes, tremors, increased diaphoresis or dry skin. ? Patient denies any difficulty swallowing, pain on swallowing or voice changes or difficulty breathing. Patient denies any history of childhood neck radiation. Denies having ever amiodarone. [place] : in the , doesnt remember how long she was on it Biotin supplements : yes Patient denies any family history of thyroid cancer. Mother , Father and sister had thyroid disease. Interval history Labs done at [facility] from September 2024 showed normal thyroid function. LEvothyroxine 50 mcg daily Obesity BMI 40.1 kg per m2 Current weight 226 lb On Wegovy 0.5 mg weekly from October to March 2024, lost 30 lbs , gained back 10 lbs since Apr 2024 Used to be overweight at a kid, then normal weight in high school , and then up until 10 years ago was normal, then started gaining weight , went from 130 lbs to 240 lbs. Also has been on anti depressive meds during this time. Prior to Wegovy was at the highest weight of 250 lbs. No history of PR or stroke. Prediabetes HTN HLD MASLD Exercise : walks daily for an hour Works Manager: no Diet: Tries to avoid junk food Reports easy bruising , no proximal muscle weakness, no skin thinning, no facial plethora, no abdominal stria Feels rings are tighter , no change in shoe size Quit smoking 2016, smoked for 30 years, 2 packs a day Alcohol use: none Drug use : none On social security, disability Is not interested in weight loss surgery, apprehensive of it Interval history 11/04/24 Thinking about weight loss surgery Has appointment with clinical laboratory manager today trying to do calorie deficit with lose it at [facility] 3-4 times a week Zepbound was denied by insurance HTN still not well controlled HAsnt been walking lately because of the heat Has a psychiatist for bipolar disorder BMI 41.2 kg/m2 , has gained another 6 lbs sine September 2024 Physical exam General: sitting comfortably in no acute distress, no acromegalic or cushingoid features HEENT: normocephalic/atraumatic, Neck: supple, symmetrical, does have dorsocervical and supraclavicular fat pads Cardiac: normal heart sounds Pulm: normal breath sounds B/L, no added breath sounds Abd: not distended, no tenderness, no purple striae Extremities: no edema, no signs of myxedema Neuro: AAO x3, Speech: normal, no facial droop, moving all 4 extremities Skin: no rash, no bruises, no skin thinning [facility] Medical History (Updated 09/22/24 @ 15:22 by Asha Tavera MD) Obesity Bipolar disorder Metabolic dysfunction-associated steatotic liver disease (MASLD) Prediabetes HLD (hyperlipidemia) HTN (hypertension) Hypothyroidism Surgical History No pertinent past surgical history Family History Mother Breast cancer Thyroid disease Father Thyroid disease Heart disease Social History Alcohol intake: current Alcohol intake frequency: does not drink Patient Tobacco Use Status: Former Tobacco user Physical Exam Vital Signs: Last Vital Signs Pulse 90 11/04/24 09:50 BP 140/72 H 11/04/24 09:50 Pulse Ox 96 11/04/24 09:50 Oxygen Delivery Method Room Air 11/04/24 09:50 BMI result Body Mass Index 41.2 Assessment & Plan Assessment & Plan (1) Hypothyroidism: Code(s): E03.9 - Hypothyroidism, unspecified Category: Medical Qualifiers: 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 Most recent blood work done in July 2024 shows TSH was slightly elevated at 4.3. [facility] which showed normal thyroid function.. Plan: -continue levothyroxine 50 mcg daily (2) Obesity: Code(s): E66.9 - Obesity, unspecified Category: Medical Qualifiers: Obesity type: due to excess calories Obesity classification: adult class 3 (BMI >= 40) Serious obesity comorbidity presence: with serious comorbidity Body mass index: BMI 40.0-44.9 Qualified Code(s): E66.813 - Obesity, class 3; Z68.41 - Body mass index [BMI] 40.0-44.9, adult Plan: 59-year-old female with class 3 severe obesity with BMI of 40.1 kg per m2 with current weight 226 lb, with serious comorbidity of hypertension, hyperlipidemia, prediabetes, metabolic dysfunction associated liver disease, who is on Wegovy 0.5 mg weekly injection from October to March 2024 and lost 30 lb, now gained 10 lb in the past 6 months since she has been off the GLP 1 agonist. She does not have any acromegalic or obvious cushingoid features. I reviewed with patient the importance of weight loss as it relates to decreasing the risk of diabetes, cardiovascular disease, obstructive sleep apnea,PCOS, arthritis. We reviewed the importance of decreasing total calorie consumption, minimizing fats and carbohydrates. We discussed the method of 500 calorie deficit per day using phone calorie apps such as [employer] it or my fitness pal. Also placed referral to clinical laboratory manager, though this was not covered by her insurance previously apparently, we will check again. She is already exercising with 30 minutes walk daily, walks about 4-5 miles. Over the past few weeks she has been not walking that much because of the heat. have asked her to add resistance training to her exercise regimen about 2-3 days a week with weight lifting and resistance bands. Continue current aerobic activity. She is a candidate for weight loss surgery, and now she feels interested in meeting. She is very motivated to lose weight and is maintaining a good exercise regimen, plus some additional information giving regarding dietary education. In addition to lifestyle modification I would strongly believe that she is a good candidate for weight loss medications. I I would like to start her on Zepbound which is a GLP 1/GI P agonist, patient would be an excellent candidate for this medication. No family history of thyroid cancer, no personal history of pancreatitis, no history of gallstones. No current alcohol use. I discussed the adverse effects of GI intolerance, risk of pancreatitis and risk of medullary thyroid cancer seen in rodents but not human being. Unfortunately insurance denied Zepbound. She has hypertension, hyperlipidemia, prediabetes and is at very high-risk of developing cardiovascular disease and diabetes and this medication we will result in about 15-20% weight loss which would be her target. She is not a good candidate for other weight loss medications which are less potent such as phentermine, as those only result in about 5% weight loss which is a short-term solution, 5% weight loss would not be getting her to her goal target. Plus she has hypertension with currently uncontrolled blood pressure, and she also has a strong psychiatric history with bipolar disorder and is on antipsychotic medications. These could interfere with phentermine. Plus weight management is a watermelon inspector chronic treatment which requires medications that patients can be on safely for long periods of time. Despite all of this mentioned under nodes, insurance still denied Zepbound. At this time I will refer her for bariatric surgery patient is interested now. She is also meeting with the clinical laboratory manager today too Plan: -lifestyle modification as advised above -see clinical laboratory manager -bariatric surgery referral placed -follow up in 3 months (3) Prediabetes: Code(s): R73.03 - Prediabetes Category: Medical Plan: See above Plan I spent 30 minutes in reviewing the record, seeing the patient and documenting in the medical record. 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
--- OUTSIDE RECORDS SUMMARY | 2024-11-04 10:32 | XMS_ITS | Clinical Summary ---
Author Organization [facility] [address] [facility] Address [address] [place] [address] Phone Care Team Providers Care Production Potter Name Role Phone Efraín Rodríguez MD Primary Care Provider [phone] Allergies No known active allergies Medications valACYclovir (VALTREX) 1 gram tablet TAKE 2 TABLETS BY MOUTH TWICE DAILY FOR 1 DAY NEEDED FOR COLD SORE 03/26/20 24 Active Wegovy 0.5 mg/0.5 mL injection pen 03/18/20 24 Active risperiDONE (RisperDAL) 2 mg tablet Take 1 tablet (2 mg total) by mouth. at bedtime. Active QUEtiapine (SEROquel) 400 mg tablet Take 2 tablets (800 mg total) by mouth. at bedtime Active polyethylene glycol 3350 (MIRALAX ORAL) Take by mouth. 06/11/19 16 Active omeprazole (PriLOSEC) [address] capsule TAKE 1 CAPSULE BY MOUTH TWICE DAILY ON AN EMPTY STOMACH Active metoclopramide (REGLAN) 5 mg tablet TAKE 1 TABLET BY MOUTH THREE TIMES DAILY 1 HOUR BEFORE MEALS 02/14/20 24 Active methylphenidate (RITALIN) 10 mg tablet TAKE 1 TABLET BY MOUTH TWICE DAILY FOR ADHD Active LORazepam (ATIVAN) 1 mg tablet Take 1 tablet (1 mg total) by mouth. 03/26/20 24 Active levothyroxine (SYNTHROID, LEVOTHROID) 50 mcg tablet Take 1 tablet (50 mcg total) by mouth. at bedtime Active levocetirizine (XYZAL) 5 mg tablet Take 1 tablet (5 mg total) by mouth. Active lamoTRIgine (LaMICtal) 150 mg tablet Take 1 tablet (150 mg total) by mouth. at bedtime. 02/02/20 24 Active fluticasone propionate (FLONASE) 50 mcg/actuation nasal spray Administer 1 spray into each nostril 1 (one) time each day. Active docusate sodium (COLACE) 100 mg capsule Take 1 capsule (100 mg total) by mouth 2 (two) times a day. 03/10/20 24 Active atorvastatin (LIPITOR) 20 mg tablet Take 1 tablet (20 mg total) by mouth 1 (one) time each day. Active amLODIPine (NORVASC) 2.5 mg tablet Take 1 tablet (2.5 mg total) by mouth 1 (one) time each day. Active albuterol HFA (PROAIR HFA ; PROVENTIL HFA ; VENTOLIN HFA) 90 mcg/actuation inhaler 2 puffs every 4 (four) hours if needed for wheezing. 02/06/20 24 Active aspirin 81 mg EC tablet Take 1 tablet (81 mg total) by mouth. 08/30/19 24 Active nortriptyline (PAMELOR) 25 mg capsuleIndicatio ns:Nausea and vomiting, unspecified vomiting type Take 1 capsule (25 mg total) by mouth at bedtime. 90 each 3 04/11/20 24 025 Active polyethylene glycol (MIRALAX) 17 gram packetIndication s:Chronic constipation Take 51 g by mouth 2 (two) times a day. 9180 g 3 07/11/19 25 026 Active ondansetron (ZOFRAN) 4 mg tabletIndication s:Nausea and vomiting, unspecified vomiting type TAKE 1 TABLET BY MOUTH THREE TIMES DAILY NEEDED 60 tablet 10/16/19 25 Active ondansetron (ZOFRAN) 4 mg tablet Take 1 tablet (4 mg total) by mouth 3 (three) times a day if needed. 02/02/20 24 025 Discontinued Active Problems Problem Noted Date Diagnosed Date [...] Encounters Date Type Department Care Team Description 10/07/2024 Telephone Gastroenterology - [address] [facility] [address] [place] [address] Kay Scott MD from Last 3 Months Surgical History Surgery [...] Care Team (Late st Contact Info) Description 12/24/2024 12:00 PM EDT Appointment [facility] [address] [place] [phone] Kay Scott MD 299 [facility] [address] [place] [address] 05/05/2025 1:30 PM EST Consult Bariatric Surgery - [place] [address] [facility] [address] [place] [id number] Justyn Rincon MD 175 [facility] [address] [place] [address] Health Maintenance Due Date Last Done Comments [...] 03/26/2022 Hypertension/CHF/CAD Annual BMP Blood Test 04/11/2024 Influenza Vaccine (#1) 2024 , 01/12/2023, 12/29/2021, Additional history exists DTaP,Tdap,and Td Vaccines (3 - Td or Tdap) 07/17/2028 07/17/2018, 06/25/2006 Colorectal Cancer Screening: Colonoscopy 04/15/2034 04/15/2024 COVID-19 Vaccine Completed 01/19/2024, , 12/29/2021, Additional [...] Insurance MEDICARE MEDICAID - [place] Care Teams Production Potter Relationship Specialty Start Date End Date Efraín Rodríguez MD [address] [place] [address] PCP - General Internal Medicine 02/18/24
== END 2024-11-04 10:20 | disposition home or self-care (01) ==
LOC: HO.ENCR 09:49
PROVIDERS: PCP Internal Medicine; Visit Provider Student in an Organized Health Care Education/Training Program
DX: E06.3 Autoimmune thyroiditis (principal); E66.813 Obesity, class 3; Z68.41 Body mass index [BMI] 40.0-44.9, adult; R73.03 Prediabetes
CPT/HCPCS: 99214

== ENCOUNTER → 2024-11-04 09:48 | Outpatient (BNVA) | payer MEDICARE, MEDICAID, SELFPAY | PROVIDERS: PCP Internal Medicine; Visit Provider Dietitian, Registered | DX: E66.813 Obesity, class 3 (principal); R73.03 Prediabetes; E06.3 Autoimmune thyroiditis; E66.9 Obesity, unspecified; Z68.41 Body mass index [BMI] 40.0-44.9, adult | CPT/HCPCS: 97802; 99212 ==

== ENCOUNTER 2025-01-12 08:12 | Outpatient (AMB) | payer MEDICARE, MEDICAID, SELFPAY ==
--- OUTSIDE RECORDS SUMMARY | 2025-01-12 09:06 | XMS_ITS | Clinical Summary ---
Author Organization [facility] 299 [facility] Address [address] [place] [address] Phone Care Team Providers Care Wireless Development Manager Name Role Phone Efraín Rodríguez MD Primary Care Provider [phone] Allergies No known active allergies Medications valACYclovir [...] ORAL) Take by mouth. 06/11/19 16 Active metoclopramide (REGLAN) 5 mg tablet TAKE [...] mg total) by mouth. 08/30/19 24 Active polyethylene glycol (MIRALAX) 17 gram packetIndication s:Chronic constipation Take 51 g by mouth 2 (two) times a day. 9180 g 3 07/11/19 25 026 Active ondansetron (ZOFRAN) 4 mg tabletIndication s:Nausea and vomiting, unspecified vomiting type TAKE 1 TABLET BY MOUTH THREE TIMES DAILY NEEDED 60 tablet 12/16/19 25 Active omeprazole (PriLOSEC) [address] capsule TAKE 1 CAPSULE BY MOUTH TWICE DAILY ON AN EMPTY STOMACH 180 capsule 2 12/17/19 25 Active nortriptyline (PAMELOR) 25 mg capsuleIndicatio ns:Nausea and vomiting, unspecified vomiting type TAKE 1 CAPSULE(25 MG) BY MOUTH AT BEDTIME 90 capsule 3 01/06/20 25 Active omeprazole (PriLOSEC) [address] capsule TAKE 1 CAPSULE BY MOUTH TWICE DAILY ON AN EMPTY STOMACH 025 Discontinued nortriptyline (PAMELOR) 25 mg capsuleIndicatio ns:Nausea and vomiting, unspecified vomiting type Take 1 capsule (25 mg total) by mouth at bedtime. 90 each 3 04/11/20 24 025 Discontinued ondansetron (ZOFRAN) 4 mg tabletIndication s:Nausea and vomiting, unspecified vomiting type TAKE 1 TABLET BY MOUTH THREE TIMES DAILY NEEDED 60 tablet 06/ 025 Discontinued Active Problems Problem Noted Date Diagnosed Date Adenomatous polyp of colon 04/11/2024 Gastroesophageal reflux disease without esophagi tis 04/11/2024 Depression 04/11/2024 Hypothyroid 04/11/2024 Bipolar affective ([facility] V24, [facility] V28) Chronic constipation 04/11/2024 Assessment & Plan [...] to stopping Wegovy Continue nortriptyline 25 mg Surgical History Surgery Date Site/Laterality Comments COLONOSCOPY [...] Care Team (Late st Contact Info) Description 03/03/2025 9:30 AM EST Appointment [facility] [address] [place] [address] Kay Scott MD 299 [facility] [place] [address] [place] [address] 05/05/2025 1:30 PM EST Consult Bariatric Surgery - [place] [address] [facility] [address] [place] [address] Justyn Rincon MD [address] [place] [address] Health Maintenance Due Date Last Done Comments Breast Cancer Screening 1967 Hepatitis A Vaccines (1 of 2 - Risk 2-dose series) 1986 Hepatitis B Vaccines (1 of 3 - 19+ 3-dose series) 1986 Cervical Cancer Screening: Pap Smear 1988 Pneumococcal Vaccine: 50+ Years (2 of 2 - PCV) 2017 12/14/2015 Zoster Vaccines (2 of 2) 05/22/2018 03/27/2018, 02/21 Cholesterol Screening (Lipid Panel) 03/26/2022 HIV Screening 03/26/2022 Hepatitis C Screening 03/26/2022 Medicare Annual Wellness Visit 03/26/2022 Social Influencers of Health Screening 03/26/2022 Hypertension/CHF/CAD Annual BMP Blood Test 04/11/2024 Depression Screening 04/23/2024 Influenza Vaccine (#1) 2024 , 01/12/2023, 12/29/2021, Additional history exists DTaP,Tdap,and Td Vaccines (3 - Td or Tdap) 07/17/2028 07/17/2018, 06/25/2006 Colorectal Cancer Screening: Colonoscopy 04/15/2034 04/15/2024 RSV Immunization Adult Patients (1 - 1-dose 75+ series) 2042 COVID-19 Vaccine Completed 01/19/2024, , 12/29/2021, Additional [...] Insurance MEDICARE MEDICAID - [place] Care Teams Wireless Development Manager Relationship Specialty Start Date End Date Efraín Rodríguez MD [address] [place] [address] PCP - General Internal Medicine 02/18/24
--- NOTE | 2025-01-12 09:56 | MHC.OFFVISWM ---
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 Allergies No Known Allergies Allergy (Verified 01/12/25 09:56) Medication List - Last Reconciled 01/12/25 by Griffin Duffy MD amlodipine 2.5 mg PO DAILY atorvastatin 40 mg PO DAILY docusate sodium 100 mg PO BID fluticasone propionate 50 mcg/actuation 1 spray intranasal DAILY lamotrigine 150 mg PO DAILY levocetirizine 5 mg PO DAILY levothyroxine 50 mcg PO DAILY lorazepam 1 mg PO TID methylphenidate HCl 10 mg PO BID nortriptyline 25 mg PO BEDTIME omeprazole 40 mg PO BID ondansetron HCl 4 mg PO TID PRN polyethylene glycol 3350 5 grams PO BID quetiapine 400 mg PO BID valacyclovir 4,000 mg PO ONCE HPI 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 Regained 20lbs back within the next 6 months. Has tried also Zepbound but the insurance did not cover it Has severe GERD requiring use of Omeprazole daily twice per day [facility] Medical History (Updated 01/12/25 @ 10:05 by Griffin Duffy MD) GERD (gastroesophageal reflux disease) ADHD BMI 35.0-35.9,adult Obesity Bipolar disorder Metabolic dysfunction-associated steatotic liver disease (MASLD) Prediabetes HLD (hyperlipidemia) HTN (hypertension) Hypothyroidism Surgical History No pertinent past surgical history Family History Mother Breast cancer Thyroid disease Father Thyroid disease Heart disease Social History Alcohol intake: current Alcohol intake frequency: does not drink Patient Tobacco Use Status: Former Tobacco user Telehealth Telehealth Telehealth Platform: Telephone Location of provider rendering services: practice address Location of patient: address on file Patient Identification confirmed using: Name, : Yes Telehealth method: voice only Patient verbally consented to treatment: Yes Patient verbally consented to billing insurance company: Yes Patient informed of any privacy concerns related to visit: Yes Minutes spent on Phone/Video with Pt.: 45 Assessment & Plan Assessment & Plan (1) Obesity: Comment: w pre DM A1c 5.7% (4) Code(s): E66.9 - Obesity, unspecified Category: Medical Qualifiers: Obesity type: due to excess calories Obesity classification: adult class 3 (BMI >= 40) Serious obesity comorbidity presence: with serious comorbidity Body mass index: BMI 40.0-44.9 Qualified Code(s): E66.813 - Obesity, class 3; Z68.41 - Body mass index [BMI] 40.0-44.9, adult Plan: 1. As we discussed, based on your present BMI you are approximately 65lbs overweight. In my opinion, for any weight loss strategy to be successful should have a high probability to help you lose at least 60lbs out of 65lbs of the extra weight you carry. We discussed in detail the available therapeutic options: a) our lifestyle intervention program that has an average weight loss of 10% in 3 months.?Some patients continue it for longer and have lost over 50lbs but this is not common. Our lifestyle program can be provided by me. I will provide you with a link to use the amandeep if you choose to do so. We use protein shakes and protein bars to replace some of the meals of the day and cover your appetite better. We will decide together the exact combination. 2) Weight loss medications: these can be used in conjunction with our lifestyle program or you may choose to use them without following a lifestyle program from my program but your own. As we discussed, your insurance does not cover these medications unless you have diabetes. You can self pay for these medications and the cost is $249 for the first month and $499 for any other month thereafter. These payments go to the drug company directly and not to us. 3) We also discussed about the lap sleeve gastrectomy. In my opinion this is the best option to solve your problem based on your situation and should be used in conjunction with the two previous options. The surgery will not only address the weight problem and eliminate your high blood pressure but most importantly it will treat your severe GERD and you may be able to be off the Omeprazole without having heartburn. ?I emphasized the importance of close follow-up, adherence to instructions and good communication. The surgery does not replace the need to change your lifestlyle which is the cause of the obesity problem. The surgery provides the motivation to try again to change your lifestyle, it reduces the appetite and make the transition to a better lifestyle easier and doubles the amount of weight you would lose compared to doing the lifestyle change without the surgery. You will need to be on a liquid diet with protein shakes for 2 weeks before surgery to maximize weight loss and boost your nutritional status to recover better from surgery and also for the first two weeks after surgery to let the stomach heal before we introduce other foods. After the first 2 weeks we will introduce protein bars and soft foods like scrambled eggs, cottage cheese and yogurt and after the 6th week will introduce meat, fish and cooked vegetables in small amounts. Over time you should be able to eat everything in small amounts. Side effects like nausea, vomiting, heartburn or abdominal pain are not common in the practice unless you are not following in the practice. This operation requires lifetime commitment to following in our practice and communication with me. You will much less weight and experience side effects if you don?t communicate or not following in the practice. Complications are rare and in our practice is about 1/10 of the national average. The patient will consider these options and will get back to me with her decision how she would like to proceed.
[2025-01-12 10:05] VITALS: BMI 40.6
== END 2025-01-12 10:30 | disposition home or self-care (01) ==
LOC: HO.HBS 08:12
PROVIDERS: PCP Internal Medicine; Visit Provider Surgery
DX: E66.01 Morbid (severe) obesity due to excess calories (principal); Z68.41 Body mass index [BMI] 40.0-44.9, adult
CPT/HCPCS: 99204